=== PATIENT | male | born 1995 | race Two or more races ===

== ENCOUNTER 2019-10-02 22:47 | Emergency (ER) | payer OTHER ==
[~2019-10-02] VITALS: Ht 182.9 cm; Wt 90.6 kg
[2019-10-02 22:48] VITALS: BP 129/71
[2019-10-03 00:25] LABS: BASO % 0.2 % (0.0-1.0); EOS % 0.5 % (0.0-3.0); HEMATOCRIT 47.4 % (42.0-52.0); HEMOGLOBIN 16.3 g/dl (13.5-17.5); LYMPH # 0.7 10^3/uL (1.5-5.0); LYMPH % 7.5 % (24.0-44.0); MEAN CORPUSCULAR HGB CONC 34.4 g/dl (32.0-36.5); MEAN CORPUSCULAR VOLUME 87.3 fl (80.0-96.0); MONO # 0.8 10^3/uL (0.0-0.8); MONO % 9.6 % (0.0-5.0); NEUTROPHILS # 7.2 10^3/uL (1.5-8.5); PLATELET COUNT, AUTOMATED 246 10^3/uL (150-450); RED BLOOD COUNT 5.43 10^6/uL (4.30-6.10); WHITE BLOOD COUNT 8.8 10^3/uL (4.0-10.0)
[2019-10-03] MEDS ORDERED: ACETAMINOPHEN TAB 650MG DOSE (2X325MG) PO ONE (00:30)
[2019-10-03 00:54] LABS: ALBUMIN 4.4 GM/DL (3.2-5.2); BILIRUBIN,DIRECT 0.2 MG/DL (0.0-0.2); BILIRUBIN,TOTAL 0.7 MG/DL (0.2-1.0); TOTAL PROTEIN 7.6 GM/DL (6.4-8.2)
[2019-10-03 01:21] LABS: INFLUENZA A AMPLIFICATION NEGATIVE (NEGATIVE); INFLUENZA B AMPLIFICATION NEGATIVE (NEGATIVE)
[2019-10-03] MEDS ORDERED: ISOVUE-370 76% 100ML VIAL (Q9967) As Ordered ONE (02:28)
--- NOTE | 2019-10-03 02:54 | REPVR ---
PROCEDURE INFORMATION: Exam: CT Abdomen And Pelvis With Contrast Exam date and time: 10/03/2019 2:18 AM Age: 24 years old Clinical indication: Abdominal pain; Localized; Right lower quadrant (rlq); Additional info: Rlq abd pain, nvd TECHNIQUE: Imaging protocol: Computed tomography of the abdomen and pelvis with intravenous contrast. Radiation optimization: All CT scans at this facility use at least one of these dose optimization techniques: automated exposure control; mA and/or kV adjustment per patient size (includes targeted exams where dose is matched to clinical indication); or iterative reconstruction. Contrast material: ISO; Contrast volume: 100 ml; Contrast route: AC; COMPARISON: No relevant prior studies available. FINDINGS: Liver: Normal. No mass. Gallbladder and bile ducts: Normal. No calcified stones. No ductal dilation. Pancreas: Normal. No ductal dilation. Spleen: Borderline splenomegaly. Adrenals: Normal. No mass. Kidneys and ureters: Normal. No hydronephrosis. Stomach and bowel: Excess fluid in the small and large bowel, correlate for diarrheal illness. Appendix: Normal appendix. Intraperitoneal space: Unremarkable. No free air. No significant fluid collection. Vasculature: Unremarkable. No abdominal aortic aneurysm. Lymph nodes: Unremarkable. No enlarged lymph nodes. Bladder: Unremarkable as visualized. Reproductive: Unremarkable as visualized. Bones/joints: Unremarkable. No acute fracture. Soft tissues: Unremarkable. IMPRESSION: 1. Normal appendix. 2. Excess fluid in the small and large bowel, correlate for diarrheal illness. Electronically signed by: Karthikeyan Bernal On 10/03/2019 02:53:19 AM
== END 2019-10-03 03:25 | disposition home or self-care (01) ==
LOC: M ED 22:47
DX: K52.9 Noninfective gastroenteritis and colitis, unspecified (principal); J30.81 Allergic rhinitis due to animal (cat) (dog) hair and dander
CPT/HCPCS: 36415; 74177; 80047; 80076; 81001; 83690; 85025; 87502; 99284; Q9967

== ENCOUNTER → 2021-04-06 | Outpatient (REF) | payer OTHER ==
[2021-04-06 14:24] LABS: SEMEN APPEARANCE OPAQUE (OPAQUE); SEMEN VISCOSITY LIQUID (LIQUID); SEMEN VOLUME 1.1 ML (2.0-5.0); SEMEN WBC <=1 M/ml (<=1 M/ml); SEMEN pH 7.5 (7.0-8.0)
== END ==
LOC: M LAB REF 13:59
PROVIDERS: ATTEND Obstetrics & Gynecology
DX: N46.8 Other male infertility (principal)

== ENCOUNTER → 2021-05-14 | Outpatient (CLI) | payer OTHER ==
[2021-05-14 17:37] LABS: APPEARANCE, URINE CLEAR (CLEAR); BILIRUBIN, URINE AUTO NEGATIVE (NEGATIVE); BLOOD, URINE BLOOD NEGATIVE (NEGATIVE); COLOR, URINE STRAW (YELLOW); GLUCOSE, URINE (UA) AUTO NEGATIVE (NEGATIVE); KETONE, URINE AUTO NEGATIVE (NEGATIVE); LEUKOCYTE ESTERASE, URINE AUTO NEGATIVE (NEGATIVE); NITRITE, URINE AUTO NEGATIVE (NEGATIVE); PROTEIN, URINE AUTO NEGATIVE (NEGATIVE); SPECIFIC GRAVITY URINE AUTO 1.006 (1.002-1.035); UROBILINOGEN, URINE AUTO 0.2 mg/dL (0.0-2.0)
[2021-05-14 17:42] LABS: HEMATOCRIT 45.9 % (42.0-52.0); HEMOGLOBIN 16.4 g/dl (13.5-17.5); MEAN CORPUSCULAR HEMOGLOBIN 30.7 pg (27.0-33.0); MEAN CORPUSCULAR HGB CONC 35.7 g/dl (32.0-36.5); MEAN CORPUSCULAR VOLUME 85.8 fl (80.0-96.0); PLATELET COUNT, AUTOMATED 366 10^3/uL (150-450); RED BLOOD COUNT 5.35 10^6/uL (4.30-6.10); WHITE BLOOD COUNT 6.7 10^3/uL (4.0-10.0)
[2021-05-14 17:48] LABS: BACTERIA, URINE AUTO NEGATIVE (NEGATIVE); RBC, URINE AUTO 0 /HPF (0-3); SQUAMOUS EPITHELIAL CELL UR AU 0 /HPF (0-6); WBC, URINE AUTO 0 /HPF (0-3)
[2021-05-14 18:09] LABS: ALBUMIN 4.5 GM/DL (3.2-5.2); ALT/SGPT 73 U/L (12-78); BILIRUBIN,TOTAL 0.5 MG/DL (0.2-1.0); BLOOD UREA NITROGEN 14 MG/DL (7-18); CALCIUM LEVEL 9.4 MG/DL (8.5-10.1); CARBON DIOXIDE LEVEL 27 MEQ/L (21-32); CHLORIDE LEVEL 106 MEQ/L (98-107); GLOMERULAR FILTRATION RATE > 60.0 (>60); GLUCOSE, FASTING 88 MG/DL (70-100); POTASSIUM SERUM 4.3 MEQ/L (3.5-5.1); SODIUM LEVEL 139 MEQ/L (136-145); TOTAL PROTEIN 7.8 GM/DL (6.4-8.2)
[2021-05-14 18:22] LABS: FOLLICLE STIMULATING HORMONE 2.8 mIU/mL (1.4-18.1); LUTEINIZING HORMONE 2.8 mIU/mL (1.5-9.3); PROLACTIN 5.3 NG/ML (2.1-17.7)
[2021-05-20 23:17] LABS: ESTROGENS TOTAL 73 pg/mL (56-213); SEX HORMONE BINDING GLOBULIN 13.2 nmol/L (16.5-55.9); TESTOSTERONE FREE (DIRECT) 8.6 pg/mL (9.3-26.5)
== END ==
LOC: M PLALAB 14:08
PROVIDERS: ATTEND Urology
DX: N46.01 Organic azoospermia (principal)
CPT/HCPCS: 36415; 80053; 81001; 82672; 83001; 83002; 84146; 84270; 84402; 84403; 85027; G0463

== ENCOUNTER → 2021-05-20 | Outpatient (CLI) | payer OTHER ==
[~2021-05-20] MED LIST: ISOVUE-370 76% 100ML VIAL As Ordered ONE
--- NOTE | 2021-05-20 10:29 | REP ---
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 COMPARISON: None. TECHNIQUE: Real-time sonographic evaluation of scrotum and contents performed. FINDINGS: Testicles are normal in size and echotexture, right testicle measuring 5.3 x 2.6 x 3.3 cm and left testicle 5.0 x 2.2 x 2.8 cm. There is no testicular mass or torsion, blood flow seen in each testicle with duplex Doppler evaluation. Each epididymal head demonstrates heterogeneous echotexture with prominent tubular structures compatible with tubular ectasia. No significant tissue is seen in the region of the epididymal body and tail bilaterally. There is no varicocele or hydrocele bilaterally. IMPRESSION: Normal testicles. There appears to be tubular ectasia in the head of each epididymis. There is no significant tissue identified in the region of the epididymal body and tail bilaterally. <Electronically signed by Darrick Alcantara > 05/20/21 [id number]
--- NOTE | 2021-05-20 10:56 | REP ---
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 COMPARISON: The comparison CT study October 03, 2019. TECHNIQUE: Helical scanning is acquired following the intravenous injection of 100 mL of Isovue 370. 3 mm axial images re-formatted. Coronal and sagittal scan images of the pelvis are provided. FINDINGS: Bony pelvic ring is intact. No bony destructive lesion is seen. No vascular abnormality is observed. No pelvic mass or adenopathy is seen. Seminal vesicles, prostate, and urinary bladder are unremarkable. Both testes appear to be located in the scrotum. Small and large bowel loops are unremarkable. No abdominal wall defect seen. IMPRESSION: Unremarkable CT study of the pelvis with IV contrast. <Electronically signed by Jose Mckeon > 05/20/21 [id number]
== END ==
LOC: M RAD 09:23
PROVIDERS: ATTEND Urology
DX: N46.01 Organic azoospermia (principal); N43.40 Spermatocele of epididymis, unspecified
CPT/HCPCS: 72193; 76870; 93976; Q9967

== ENCOUNTER → 2021-05-28 | Outpatient (CLI) | payer OTHER ==
[2021-05-29 19:06] LABS: TESTOSTERONE FREE (DIRECT) 11.8 pg/mL (9.3-26.5)
== END ==
LOC: M PLALAB 11:03
DX: N46.01 Organic azoospermia (principal)
CPT/HCPCS: 36415; 84402; 84403; G0463

== ENCOUNTER → 2021-06-04 | Outpatient (REF) | payer OTHER ==
[2021-06-04 09:42] LABS: SEMEN APPEARANCE OPAQUE (OPAQUE)
[2021-06-04 09:43] LABS: SEMEN VISCOSITY LIQUID (LIQUID); SEMEN VOLUME 0.8 ML (2.0-5.0)
[2021-06-04 09:45] LABS: SEMEN WBC >1 M/ml (<=1 M/ml); SEMEN pH 7.5 (7.0-8.0)
== END ==
LOC: M SMT 09:14
PROVIDERS: ATTEND Urology
DX: N46.01 Organic azoospermia (principal)

== ENCOUNTER → 2021-06-09 | Outpatient (CLI) | payer OTHER ==
--- NOTE | 2021-06-10 07:25 | REP ---
INDICATION: INFERTILITY AXOOSPERMIA COMPARISON: 05/20/2021 TECHNIQUE: Alcantara scale and color Doppler evaluation using linear and curved array transducer with color Doppler evaluation. FINDINGS: The bilateral testicles are normal in appearance, size, echotexture and vascularity. There is evidence for tubular ectasia at the head of the right and left epididymis and both epididymi appear shortened/atrophic without body/tail. Early left-sided varicoceles are also suggested. Right testicle measures 5.4 x 3.1 x 3.5 cm. Left testicle measures 4.7 x 2.1 x 2.7 cm. IMPRESSION: 1. No significant change from prior examination. <Electronically signed by Clem Horton > 06/09/21 [id number]
== END ==
LOC: M RAD 13:36
PROVIDERS: ATTEND Urology
DX: N46.01 Organic azoospermia (principal)